=== PATIENT | female | born 1995 | race Caucasian/White ===

== ENCOUNTER 2017-10-31 01:02 | Emergency (ER) | payer BC, OTHER ==
--- NOTE | 2017-10-31 01:05 | ER Report ---
History and Physical Time Seen By MD: 01:05 HPI/ROS CHIEF COMPLAINT: Right wrist laceration HISTORY OF PRESENT ILLNESS: 22-year-old female presents ambulatory to the ER complaining of right wrist laceration from glass window. Patient on examination has a tiny superficial flap over the right radial wrist overlying the radial a rtery. There is no gross bleeding. The flap is V-shaped and approximately 2 cm on each length. Patient's tetanus status is up-to-date. Patient notes 2/10 pain. She demonstrates full range of motion of all distal tendons.. REVIEW OF SYSTEMS: Respiratory: No cough, no dyspnea. Cardiovascular: No chest pain, no palpitations. Gastrointestinal: No vomiting, no abdominal pain. Musculoskeletal: No back pain. Allergies: Coded Allergies: No Known Drug Allergies (Unverified , 10/31/17) Home Meds No Active Prescriptions or Reported Meds Reviewed Nurses Notes: Yes Old Medical Records Reviewed: Yes Constitutional Vital Sign - Last 24 Hours 10/31/17 10/31/17 10/31/17 10/31/17 01:05 01:17 01:30 01:32 Temp 97.8 Pulse 75 90 86 Resp 16 B/P (MAP) 122/79 110/65 (80) Pulse Ox 98 98 90 O2 Delivery Room Air 10/31/17 01:47 Pulse 71 Physical Exam General appearance: Alert no distress. Respiratory: Chest is non tender, lungs are clear to auscultation. Cardiac: Regular rate and rhythm Extremities: Examination of the right wrist reveals a V-shaped laceration approximately 4.0 cm in length. All distal neurovascular functions intact. DIFFERENTIAL DIAGNOSIS: After history and physical exam differential diagnosis was considered for tendon laceration, skin laceration, nerve/artery laceration, wrist joint penetration Medical Decision Making ED Course/Re-evaluation ED Course Patient was admitted to an examination room. H&P was done. The differential diagnoses was considered. On clinical examination. Patient has a very superficial flap laceration of her right radial wrist. The wound is repaired as noted below. A pressure dressing was applied. Wound care was discussed. Patient to have suture removal in 12-14 days. Procedure: Laceration repair. Verbal consent was obtained from the patient. The 4.0 cm laceration on the right radial wrist or surface was anesthetized in the usual fashion. The wound was scrubbed, draped and explored to its base with a gloved finger. There were no foreign bodies noted There were no deep structures involved. No tendon injury was identified. The wound was repaired with 6-0 Prolene 5 sutures. The flap was quite thin in delicate. It was approximated as with minimal sutures. The wound repair was simple. The procedure was performed by myself. Decision to Disposition Date: Oct 31, 2017 Decision to Disposition Time: 01:44 Depart Departure Latest Vital Signs Vital Signs Date Time Temp Pulse Resp B/P (MAP) Pulse Ox O2 Delivery O2 Flow Rate FiO2 10/31/17 01:47 71 10/31/17 01:32 90 10/31/17 01:30 110/65 (80) 10/31/17 01:05 97.8 16 Room Air Impression: Primary Impression: Laceration of right wrist Condition: Improved Disposition: HOME OR SELF-CARE New Scripts No Active Prescriptions or Reported Meds Patient Instructions: Laceration (ED) Additional Instructions: Perform daily wound care, gently massage the area with baby shampoo and clean it blotted dry, cover with a thin layer of anabolic ointment and a 2 x 2 inch Band- Aid Have your stitches removed in 12-14 days Problem Qualifiers Primary Impression: Laceration of right wrist Encounter type: initial encounter Qualified Codes: S61.511A - Laceration without foreign body of right wrist, initial encounter FER GREENBERG DO Oct 31, 2017 01:05
[2017-10-31 01:30] VITALS: BP 110/65
== END 2017-10-31 01:54 | disposition home or self-care (01) ==
LOC: ER 01:33
DX: S61.511A Laceration without foreign body of right wrist, initial encounter (principal)
CPT/HCPCS: 99283